=== PATIENT | female | born 1985 | race Caucasian/White ===

== ENCOUNTER → 2023-07-26 | Outpatient (CLI) | payer BC, OTHER ==
--- NOTE | 2023-07-27 08:25 | US ---
EXAMINATION TYPE: US thyroid st tissue head/neck DATE OF EXAM: 07/26/2023 COMPARISON: NONE CLINICAL INDICATION: Female, 37 years old with history of E04.1 SINGLE THYROID NODULE; known nodules, had biopsy of left nodule last year at [facility] in [place] SIZE: Right Lobe: 4.4 x 1.5 x 1.7 cm Overall Parenchyma: heterogenous Left Lobe: 4.8 x 1.5 x 1.7 cm Overall Parenchyma: heterogenous Isthmus Thickness: 0.3 cm NODULES RIGHT: # of nodules measured on right: 1. 1.0 X 0.9 x 0.7 cm, mid , mixed cystic and solid, hypoechoic nodule, which is wider than tall, wi th smooth margins, without echogenic foci. Prior size: USER INTERFACE DESIGNER here LEFT: # of nodules measured on left: 1 1. 1.6 X 0.9 x 0.7 cm, mid, mixed cystic and solid, hypoechoic nodule, which is wider than tall, wi th smooth margins, without echogenic foci. Prior size: USER INTERFACE DESIGNER here ISTHMUS: # of nodules measured in the isthmus: 0 Bilateral neck scanned, no evidence of lymphadenopathy. IMPRESSION: TR 3 thyroid nodules. There is a 1.6 cm left thyroid nodule and 1 cm right thyroid with findings sugg estive of thyroiditis 2017 ACR TI-RADS LEVEL: TR-RADS 3 - Mildly Suspicious: Follow if > 1.5 cm, FNA if > 2.5 cm *Highest TI-RADS level nodule reported
--- NOTE | 2023-07-27 09:56 | CA ---
Transthoracic Echo Report Name: Pam Miller Age: 37 Gender: F : 1985 Exam Date: 07/26/2023 16:21 Exam Location: [facility] Ht (in): 65 Wt (lb): 174 Ordering Physician: Jelena Plunkett DO Attending/Referring Phys: Stephie Krishnamurthy [facility] Chief Client Officer Tereza Sauceda RDCS Procedure CPT: Indications: E04.1 NONTOXIC SINGLE THYROID NODULE Cardiac Hx: Technical Quality: Fair Contrast 1: Total Dose (mL): Contrast 2: Total Dose (mL): MEASUREMENTS (Male / Female) Normal Values 2D ECHO LV Diastolic Diameter PLAX 5.3 cm 4.2 - 5.9 / 3.9 - 5.3 cm LV Systolic Diameter PLAX 3.8 cm IVS Diastolic Thickness 0.9 cm 0.6 - 1.0 / 0.6 - 0.9 cm LVPW Diastolic Thickness 1.0 cm 0.6 - 1.0 / 0.6 - 0.9 cm LV Relative Wall Thickness 0.4 RV Internal Dim ED PLAX 2.4 cm LA Volume 68.3 cm??? 18 - 58 / 22 - 52 cm??? LA Volume Index 35.5 cm???/m??? 16 - 28 cm???/m??? M-MODE Aortic Root Diameter MM 2.6 cm LA Systolic Diameter MM 2.9 cm LA Ao Ratio MM 1.1 AV Cusp Separation MM 1.8 cm DOPPLER AV Peak Velocity 145.5 cm/s AV Peak Gradient 8.5 mmHg AV Mean Velocity 102.5 cm/s AV Mean Gradient 4.6 mmHg AV Velocity Time Integral 30.8 cm MV Area PHT 4.3 cm??? Mitral E Point Velocity 124.5 cm/s Mitral A Point Velocity 101.4 cm/s Mitral E to A Ratio 1.2 MV Deceleration Time 176.4 ms MV E' Velocity 13.0 cm/s Mitral E to MV E' Ratio 9.6 TR Peak Velocity 292.0 cm/s TR Peak Gradient 34.1 mmHg Right Ventricular Systolic Press 37.2 mmHg FINDINGS Left Ventricle Normal Left ventricular size, wall thickness, systolic function with no obvious regional wall motion abnormalities. Normal Left ventricular diastolic filling pattern. Left ventricular ejection fraction is estimated at 55 %. Right Ventricle Normal right ventricular size and function. Mild pulmonary hypertension. Right Atrium Normal right atrial size. Left Atrium Moderately increased left atrial volume. Mitral Valve Structurally normal mitral valve. Mitral valve thickened. Mild mitral regurgitation. Aortic Valve Trileaflet aortic valve. No aortic valve stenosis or regurgitation. Tricuspid Valve Structurally normal tricuspid valve. Mild tricuspid regurgitation. Pulmonic Valve Structurally normal pulmonic valve. Trace pulmonic regurgitation. Pericardium No pericardial effusion. Aorta Normal size aortic root and proximal ascending aorta. CONCLUSIONS Normal LV size and systolic function Previewed by: Dr. Baldemar Briceño MD (Electronically Signed) Final Date: 27 July 2023 09:55
== END | disposition home or self-care (01) ==
LOC: RADECHMAIN 16:10
PROVIDERS: ATTEND Family Medicine
DX: E04.2 Nontoxic multinodular goiter (principal); R00.2 Palpitations
CPT/HCPCS: 76536; 93306

== ENCOUNTER → 2023-08-22 | Outpatient (CLI) | payer BC, OTHER ==
--- NOTE | 2023-08-22 09:18 | US ---
EXAMINATION TYPE: US renal artery duplex complet DATE OF EXAM: 08/22/2023 COMPARISON: NONE CLINICAL INDICATION: Female, 38 years old with history of R03.0 HTN Z85.72 PERSONAL HISTORY OF NON-HO DGKIN L; MEASUREMENTS: RENAL SIZE: Rt Kidney: 12.5 x 3.9 x 5.6cm Lt Kidney: 13.3 x 6.1 x 5.3cm RESISTANCE INDEX Right: 0.6 Left: 0.7 RA/AO RATIO (< 3.5 ) Right: 1.2 Left: 1.7 RA VELOCITY ( < 180 cm/s) Right: 92.1 Left: 133.6 No hydronephrosis. IMPRESSION: No ultrasound evidence for renal artery stenosis.
== END | disposition home or self-care (01) ==
LOC: RADUSWWP 07:51
PROVIDERS: ATTEND Family Medicine
DX: R03.0 Elevated blood-pressure reading, without diagnosis of hypertension (principal); Z85.72 Personal history of non-Hodgkin lymphomas
CPT/HCPCS: 93975